=== PATIENT | male | born 1935 | race Two or more races ===

== ENCOUNTER 2017-10-23 11:25 | Day surgery (SDC) | payer MEDICARE ==
[2017-10-22 08:31] VITALS: BMI 27.5
[~2017-10-23 11:25] MED LIST: HYDROmorphone 0.5 MG/0.5 ML SYRINGE IVP PRN; LACTATED RINGERS 1,000 ML IV SCH
[2017-10-23 13:14] VITALS: RESP 16; TEMP 97.8
[2017-10-23] MEDS ORDERED: LIDOCAINE 1% 20 ML VIAL (10MG/ML) FOR IV START INTRADERMA ONE (13:19)
[2017-10-23] MEDS ORDERED: MIDAZOLAM 2 MG/2 ML VIAL ONE (14:21)
[2017-10-23] MEDS ORDERED: PROPOFOL 10 MG/ML 20 ML VIAL IV ONE (14:21)
[2017-10-23] MEDS ORDERED: fentaNYL (PF) 50 MCG/ML 2 ML AMP ONE (14:21)
--- NOTE | 2017-10-23 14:46 | P.PCN ---
Date of Procedure: 10/23/17 Procedure(s) Performed: Brief history: Patient is a pleasant 81-year-old white male, scheduled for an elective upper endoscopy as well as colonoscopy as a part of evaluation of rectal bleeding and 2 episodes of melena in the last few weeks' duration. He had a CT of the abdomen and pelvis done that showed some thickening of the colon. Patient was also diagnosed with iron deficiency anemia and has been on iron supplements lately. Procedure performed: Esophagogastroduodenoscopy with biopsy Colonoscopy with snare polypectomy Preoperative diagnosis: Anesthesia: MAC Procedure: After informed consent was obtained from the patient was brought into the endoscopy unit and IV sedation was administered by anesthesia under continuous monitoring. Initially upper endoscopy was done. The Olympus GF 160 video endoscope was inserted inserted into the mouth and esophagus intubated without any difficulty and was gradually advanced into the stomach and duodenum and carefully examined. The bulb and second part of the duodenum appeared normal. Biopsies were done from the duodenum to rule out celiac disease. The scope was then withdrawn into the stomach adequately insufflated with air and upon careful examination the antrum had minimal gastritis and biopsies were done from this area. The body, cardia and fundus appeared normal. The scope was then withdrawn into the esophagus. The GE junction was located at 40 cm to the incisors. It appeared regular with no erythema erosions or ulcerations. Rest of the esophagus appeared normal. Patient tolerated the procedure well. At this time the patient continued to remain sedation. Initial digital rectal examination was normal. Olympus CF 160 video colonoscope was then inserted into the rectum and gradually advanced to the cecum without any difficulty. Careful examination was performed as the scope was gradually being withdrawn. The prep was excellent. The cecum, appeared normal. In the ascending colon there was a 5 mm and 1 cm broad-based polyp removed by snare polypectomy. In the hepatic flexure there was a 1 cm broad-based polyp removed by snare polypectomy. Rest of the ascending colon, transverse colon, descending colon, sigmoid colon and rectum appeared normal. Retroflexion was performed in the rectum and weight 2 internal hemorrhoids were noted. Patient tolerated the procedure well. Impression: 1. Upper endoscopy revealed minimal antral gastritis but no evidence of esophagitis or peptic ulcer disease 2. Colonoscopy revealed : a)5 mm and 1 cm ascending colon polyp, snare polypectomy b)1 cm hepatic flexure polyp status post polypectomy c)Small internal hemorrhoids Recommendations: Findings of this examination were discussed with the patient as well as his family. He was advised to follow with the biopsy results. He'll be seen in office in 2 weeks.,
[2017-10-23 15:28] VITALS: BP 146/83; PULSE 75
== END 2017-10-23 15:56 | disposition home or self-care (01) ==
LOC: ORWHC2ENDO 11:25
PROVIDERS: ATTEND Internal Medicine Gastroenterology
DX: I10 Essential (primary) hypertension (principal); K29.50 Unspecified chronic gastritis without bleeding; D12.2 Benign neoplasm of ascending colon; D12.3 Benign neoplasm of transverse colon; K64.1 Second degree hemorrhoids; Z87.891 Personal history of nicotine dependence; N40.0 Benign prostatic hyperplasia without lower urinary tract symptoms; Z86.73 Personal history of transient ischemic attack (TIA), and cerebral infarction without residual deficits; Z79.899 Other long term (current) drug therapy; Z88.5 Allergy status to narcotic agent
CPT/HCPCS: 88305; 45385; 43239; J2250; J3010; J2704

== ENCOUNTER 2022-05-19 19:11 | Inpatient (IN) | payer MEDICARE ==
--- NOTE | 2022-05-19 19:42 | ED ---
Weakness HPI - General Chief complaint: Weakness Stated complaint: Weakness Time Seen by Provider: 05/19/22 19:24 Source: patient, EMS, RN notes reviewed Mode of arrival: EMS Limitations: no limitations - History of Present Illness Initial comments: 86-year-old male presents to emergency department with chief complaint of generalized weakness. Patient states that he was recently at rehab in which is getting stronger states he is not walking with any assisted devices at home but states yesterday he developed weakness that was worse today states cutting get out of his chair. Son and room states that he actually urinated which is very unusual for the patient. Patient denies any dysuria or abdominal pain currently states she's been very frequent. Patient denies any current headache, focal weakness she states she is able to move extremities. He has complained of increasing cough and cold like symptoms last 3-4 days. Denies nausea, vomiting, diarrhea constipation. Denies chest pain. - Related Data Home Medications Medication Instructions Recorded Confirmed Tamsulosin HCl [Flomax] 0.4 mg PO DAILY 10/22/17 03/03/22 amLODIPine [Norvasc] 5 mg PO DAILY 10/22/17 03/03/22 Atorvastatin [Lipitor] 10 mg PO DAILY 03/03/22 03/03/22 Finasteride [Proscar] 5 mg PO DAILY 03/03/22 03/03/22 Losartan [Cozaar] 50 mg PO DAILY 03/03/22 03/03/22 Previous Rx's Medication Instructions Recorded Acetaminophen Tab [Tylenol] 650 mg PO Q6HR PRN tab 04/01/22 Heparin Sodium,Porcine [Heparin 5,000 unit SQ Q12HR 30 Days #60 04/01/22 Sodium] each Ipratropium-Albuterol Nebulize 3 ml INHALATION RT-Q2H PRN each 04/01/22 [Duoneb 0.5 mg-3 mg/3 ml Soln] Ipratropium-Albuterol Nebulize 3 ml INHALATION RT-QID each 04/01/22 [Duoneb 0.5 mg-3 mg/3 ml Soln] Magnesium Hydroxide [Milk of 2,400 mg PO DAILY ml 04/01/22 Magnesia Concentrate] Metoclopramide [Reglan] 5 mg PO TID PRN #20 tab 04/01/22 Pantoprazole [Protonix] 40 mg PO DAILY #30 tab 04/01/22 guaiFENesin [Mucinex] 600 mg PO Q12HR tab 04/01/22 Allergies Allergy/AdvReac Type Severity Reaction Status Date / Time codeine Allergy Unknown Verified 03/03/22 20:21 Review of Systems ROS Statement: Those systems with pertinent positive or pertinent negative responses have been documented in the HPI. ROS Other: All systems not noted in ROS Statement are negative. Past Medical History Past Medical History: CVA/TIA, Hypertension, Prostate Disorder Additional Past Medical History / Comment(s): , CVA 2012, states no deficits History of Any Multi-Drug Resistant Organisms: None Reported Past Surgical History: Hernia Repair Past Anesthesia/Blood Transfusion Reactions: No Reported Reaction Past Psychological History: No Psychological Hx Reported Smoking Status: Former smoker Past Alcohol Use History: Occasional Past Drug Use History: None Reported - Past Family History Mother Family Medical History: No Reported History General Exam Limitations: no limitations General appearance: alert, in no apparent distress Head exam: Present: atraumatic, normocephalic, normal inspection Eye exam: Present: normal appearance, PERRL, EOMI. Absent: scleral icterus, conjunctival injection, periorbital swelling ENT exam: Present: normal exam, normal oropharynx, mucous membranes moist Neck exam: Present: normal inspection. Absent: tenderness, meningismus, lymphadenopathy Respiratory exam: Present: normal lung sounds bilaterally. Absent: respiratory distress, wheezes, rales, rhonchi, stridor Cardiovascular Exam: Present: normal rhythm, tachycardia, normal heart sounds. Absent: systolic murmur, diastolic murmur, rubs, gallop, clicks GI/Abdominal exam: Present: soft, normal bowel sounds. Absent: distended, tenderness, guarding, rebound, rigid Extremities exam: Present: normal inspection, full ROM, normal capillary refill. Absent: tenderness, pedal edema, joint swelling, calf tenderness Neurological exam: Present: alert, oriented X3, CN II-XII intact Skin exam: Present: warm, dry, intact, normal color. Absent: rash Course Vital Signs 05/19/22 05/19/22 05/20/22 19:17 22:50 01:00 Temperature 98.3 F 99.9 F H Pulse Rate 109 H 106 H Respiratory 18 20 Rate Blood Pressure 132/63 151/86 O2 Sat by Pulse 94 L 97 Oximetry EKG Findings - EKG Comments: EKG Findings:: EKG performed at 19:23 sinus tachycardia rate 11 MN 199 QRS 82 QT/QTC 310/368 - EKG Results: EKG: interpreted by ELLEND Medical Decision Making - Medical Decision Making Was pt. sent in by a medical professional or institution (, PA, EXAMINER RATING CLERK, urgent care, hospital, or assisted...) When possible be specific @ -No Did you speak to anyone other than the patient for history (EMS, parent, family, police, friend...)? What history was obtained from this source @ -Son in the room provide primary history EMS provided prehospital care Did you review nursing and triage notes (agree or disagree)? Why? @ -I reviewed and agree with nursing and triage notes Were old charts reviewed (outside hosp., previous admission, EMS record, old EKG, old radiological studies, urgent care reports/EKG's, assisted records)? Report findings @ -No old charts were reviewed Differential Diagnosis (chest pain, altered mental status, abdominal pain women, abdominal pain men, vaginal bleeding, weakness, fever, dyspnea, syncope, headache, dizziness, GI bleed, back pain, seizure, CVA, palpatations, mental health, musculoskeletal)? @ -nDifferential Weakness: Hypoglycemia, shock, sepsis, hyponatremia, anemia, infection, NM, ETOH, adverse medicine reaction, overdose, stroke, this is not meant to be an all-inclusive list.plicable EKG interpreted by me (3pts min.). @ -As above X-rays interpreted by me (1pt min.). @ -Chest x-ray shows no acute abnormality done CT interpreted by me (1pt min.). @ -None done U/S interpreted by me (1pt. min.). @ -None done What testing was considered but not performed or refused? (CT, X-rays, U/S, labs)? Why? @ -None What meds were considered but not given or refused? Why? @ -None Did you discuss the management of the patient with other professionals (professionals i.e. , JENIFER, EXAMINER RATING CLERK, lab, RT, psych nurse, social human services assistants, telephone sterilizer, teacher, engineering officer, bottle caser)? Give summary @ -Dr. Brothers for admission secondary to profound weakness, UTI and Covid 19 Was smoking cessation discussed for >3mins.? @ -No Was critical care preformed (if so, how long)? @ -No Were there social determinants of health that impacted care today? How? (Homelessness, low income, unemployed, alcoholism, drug addiction, transportation, low edu. Level, literacy, decrease access to med. care, senior living, rehab)? @ -No Was there de-escalation of care discussed even if they declined (Discuss DNR or withdrawal of care, Hospice)? DNR status @ -No What co-morbidities impacted this encounter? (DM, HTN, Smoking, COPD, CAD, Cancer, CVA, ARF, Chemo, Hep., AIDS, mental health diagnosis, sleep apnea, morbid obesity)? @ -None Was patient admitted / discharged? Hospital course, mention meds given and route, prescriptions, significant lab abnormalities, going to OR and other pertinent info. @ -Admitted patient is profoundly weak secondary to UTI, Covid. Patient was admitted on IV antibiotics, fluids, antipyretics. Family updated and results and plan Undiagnosed new problem with uncertain prognosis? @ -No Drug Therapy requiring intensive monitoring for toxicity (Heparin, Nitro, Insulin, Cardizem)? @ -No Were any procedures done? @ -No Diagnosis/symptom? @ -UTI, Covid Acute, or Chronic, or Acute on Chronic? @ -Acute Uncomplicated (without systemic symptoms) or Complicated (systemic symptoms)? @ -Complicated Side effects of treatment? @ -No Exacerbation, Progression, or Severe Exacerbation? @ -No Poses a threat to life or bodily function? How? (Chest pain, USA, NM, pneumonia, PE, COPD, DKA, ARF, appy, cholecystitis, CVA, Diverticulitis, Homicidal, Suicidal, threat to staff... and all critical care pts) @ -No - Lab Data Result diagrams: 05/19/22 19:23 05/19/22:23 Lab Results 05/19/22 05/19/22 05/19/22 Range/Units ::: WBC 19.0 H (3.8-10.6) k/uL RBC 3.19 L (4.30-5.90) m/uL Hgb 7.9 L (13.0-17.5) gm/dL Hct 25.5 L (39.0-53.0) % MCV 79.8 L (80.0-100.0) fL MCH 24.6 L (25.0-35.0) pg MCHC 30.8 L (31.0-37.0) g/dL RDW 22.7 H (11.5-15.5) % Plt Count 359 (150-450) k/uL MPV 7.7 Neutrophils % 88 % Lymphocytes % 4 % Monocytes % 7 % Eosinophils % 0 % Basophils % 0 % Neutrophils # 16.7 H (1.3-7.7) k/uL Lymphocytes # 0.7 L (1.0-4.8) k/uL Monocytes # 1.3 H (0-1.0) k/uL Eosinophils # 0.0 (0-0.7) k/uL Basophils # 0.0 (0-0.2) k/uL Hypochromasia Marked Poikilocytosis Slight Anisocytosis Moderate Microcytosis Moderate PT (9.0-12.0) sec INR (<1.2) APTT (22.0-30.0) sec Sodium 131 L (137-145) mmol/L Potassium 4.6 (3.5-5.1) mmol/L Chloride 102 (98-107) mmol/L Carbon Dioxide 20 L (22-30) mmol/L Anion Gap 9 mmol/L BUN 14 (9-20) mg/dL Creatinine 1.22 (0.66-1.25) mg/dL Est GFR (CKD-EPI)AfAm 62 (>60 ml/min/1.73 sqM) Est GFR (CKD-EPI)NonAf 54 (>60 ml/min/1.73 sqM) Glucose 102 H (74-99) mg/dL Plasma Lactic Acid Yonatan 1.4 (0.7-2.0) mmol/L Calcium 8.0 L (8.4-10.2) mg/dL Phosphorus 2.2 L (2.5-4.5) mg/dL Magnesium 1.7 (1.6-2.3) mg/dL Total Bilirubin 0.7 (0.2-1.3) mg/dL AST 28 (17-59) U/L ALT 18 (4-49) U/L Alkaline Phosphatase 52 (38-126) U/L Troponin I (0.000-0.034) ng/mL Total Protein 6.4 (6.3-8.2) g/dL Albumin 3.2 L (3.5-5.0) g/dL Urine Color Urine Appearance (Clear) Urine pH (5.0-8.0) Ur Specific [place] (1.001-1.035) Urine Protein (Negative) Urine Glucose (UA) (Negative) Urine Ketones (Negative) Urine Blood (Negative) Urine Nitrite (Negative) Urine Bilirubin (Negative) Urine Urobilinogen (<2.0) mg/dL Ur Leukocyte Esterase (Negative) Urine RBC (0-5) /hpf Urine WBC (0-5) /hpf Urine WBC Clumps (None) /hpf Ur Squamous Epith Cells (0-4) /hpf Urine Mucus (None) /hpf Influenza Type A (PCR) (Not Detectd) Influenza Type B (PCR) (Not Detectd) RSV (PCR) (Not Detectd) SARS-CoV-2 (PCR) (Not Detectd) 05/19/22 05/19/22 05/19/22 Range/Units 19:23 19:46 19:46 WBC (3.8-10.6) k/uL RBC (4.30-5.90) m/uL Hgb (13.0-17.5) gm/dL Hct (39.0-53.0) % MCV (80.0-100.0) fL MCH (25.0-35.0) pg MCHC (31.0-37.0) g/dL RDW (11.5-15.5) % Plt Count (150-450) k/uL MPV Neutrophils % % Lymphocytes % % Monocytes % % Eosinophils % % Basophils % % Neutrophils # (1.3-7.7) k/uL Lymphocytes # (1.0-4.8) k/uL Monocytes # (0-1.0) k/uL Eosinophils # (0-0.7) k/uL Basophils # (0-0.2) k/uL Hypochromasia Poikilocytosis Anisocytosis Microcytosis PT 12.2 H (9.0-12.0) sec INR 1.2 H (<1.2) APTT 23.7 (22.0-30.0) sec Sodium (137-145) mmol/L Potassium (3.5-5.1) mmol/L Chloride (98-107) mmol/L Carbon Dioxide (22-30) mmol/L Anion Gap mmol/L BUN (9-20) mg/dL Creatinine (0.66-1.25) mg/dL Est GFR (CKD-EPI)AfAm (>60 ml/min/1.73 sqM) Est GFR (CKD-EPI)NonAf (>60 ml/min/1.73 sqM) Glucose (74-99) mg/dL Plasma Lactic Acid Yonatan (0.7-2.0) mmol/L Calcium (8.4-10.2) mg/dL Phosphorus (2.5-4.5) mg/dL Magnesium (1.6-2.3) mg/dL Total Bilirubin (0.2-1.3) mg/dL AST (17-59) U/L ALT (4-49) U/L Alkaline Phosphatase (38-126) U/L Troponin I 0.019 (0.000-0.034) ng/mL Total Protein (6.3-8.2) g/dL Albumin (3.5-5.0) g/dL Urine Color Urine Appearance (Clear) Urine pH (5.0-8.0) Ur Specific [place] (1.001-1.035) Urine Protein (Negative) Urine Glucose (UA) (Negative) Urine Ketones (Negative) Urine Blood (Negative) Urine Nitrite (Negative) Urine Bilirubin (Negative) Urine Urobilinogen (<2.0) mg/dL Ur Leukocyte Esterase (Negative) Urine RBC (0-5) /hpf Urine WBC (0-5) /hpf Urine WBC Clumps (None) /hpf Ur Squamous Epith Cells (0-4) /hpf Urine Mucus (None) /hpf Influenza Type A (PCR) Not Detected (Not Detectd) Influenza Type B (PCR) Not Detected (Not Detectd) RSV (PCR) Not Detected (Not Detectd) SARS-CoV-2 (PCR) Detected A (Not Detectd) 05/19/22 Range/Units 21:25 WBC (3.8-10.6) k/uL RBC (4.30-5.90) m/uL Hgb (13.0-17.5) gm/dL Hct (39.0-53.0) % MCV (80.0-100.0) fL MCH (25.0-35.0) pg MCHC (31.0-37.0) g/dL RDW (11.5-15.5) % Plt Count (150-450) k/uL MPV Neutrophils % % Lymphocytes % % Monocytes % % Eosinophils % % Basophils % % Neutrophils # (1.3-7.7) k/uL Lymphocytes # (1.0-4.8) k/uL Monocytes # (0-1.0) k/uL Eosinophils # (0-0.7) k/uL Basophils # (0-0.2) k/uL Hypochromasia Poikilocytosis Anisocytosis Microcytosis PT (9.0-12.0) sec INR (<1.2) APTT (22.0-30.0) sec Sodium (137-145) mmol/L Potassium (3.5-5.1) mmol/L Chloride (98-107) mmol/L Carbon Dioxide (22-30) mmol/L Anion Gap mmol/L BUN (9-20) mg/dL Creatinine (0.66-1.25) mg/dL Est GFR (CKD-EPI)AfAm (>60 ml/min/1.73 sqM) Est GFR (CKD-EPI)NonAf (>60 ml/min/1.73 sqM) Glucose (74-99) mg/dL Plasma Lactic Acid Yonatan (0.7-2.0) mmol/L Calcium (8.4-10.2) mg/dL Phosphorus (2.5-4.5) mg/dL Magnesium (1.6-2.3) mg/dL Total Bilirubin (0.2-1.3) mg/dL AST (17-59) U/L ALT (4-49) U/L Alkaline Phosphatase (38-126) U/L Troponin I (0.000-0.034) ng/mL Total Protein (6.3-8.2) g/dL Albumin (3.5-5.0) g/dL Urine Color Yellow Urine Appearance Cloudy (Clear) Urine pH 7.0 (5.0-8.0) Ur Specific [place] 1.016 (1.001-1.035) Urine Protein 1+ H (Negative) Urine Glucose (UA) Negative (Negative) Urine Ketones Negative (Negative) Urine Blood Trace H (Negative) Urine Nitrite Positive (Negative) Urine Bilirubin Negative (Negative) Urine Urobilinogen <2.0 (<2.0) mg/dL Ur Leukocyte Esterase Large H (Negative) Urine RBC 7 H (0-5) /hpf Urine WBC >182 H (0-5) /hpf Urine WBC Clumps Occasional H (None) /hpf Ur Squamous Epith Cells <1 (0-4) /hpf Urine Mucus Rare H (None) /hpf Influenza Type A (PCR) (Not Detectd) Influenza Type B (PCR) (Not Detectd) RSV (PCR) (Not Detectd) SARS-CoV-2 (PCR) (Not Detectd) Disposition Clinical Impression: Anemia, Weakness, UTI (urinary tract infection), COVID-19 Disposition: ADMITTED IP TO THIS HOSP Condition: Fair Time of Disposition: 22:40
[2022-05-19 20:06] LABS: Anisocytosis Moderate; Basophils % (A) 0 %; Eosinophils % (A) 0 %; HCT 25.5 % (39.0-53.0); HGB 7.9 gm/dL (13.0-17.5); Hypochromasia Marked; Lymphocytes # (A) 0.7 k/uL (1.0-4.8); Lymphocytes % (A) 4 %; MCH 24.6 pg (25.0-35.0); MCHC 30.8 g/dL (31.0-37.0); MCV 79.8 fL (80.0-100.0); Mean Platelet Volume 7.7; Microcytosis Moderate; Monocytes # (A) 1.3 k/uL (0-1.0); Monocytes % (A) 7 %; Neutrophils # (A) 16.7 k/uL (1.3-7.7); Neutrophils % (A) 88 %; Platelet Count 359 k/uL (150-450); Poikilocytosis Slight; RBC 3.19 m/uL (4.30-5.90); RDW 22.7 % (11.5-15.5)
--- NOTE | 2022-05-19 20:07 | XR ---
EXAMINATION TYPE: XR chest 2V DATE OF EXAM: 05/19/2022 COMPARISON: 03/24/2022 HISTORY: Shortness of breath TECHNIQUE: Frontal and lateral views of the chest are obtained. FINDINGS: Scattered senescent parenchymal changes noted. Hyperinflation compatible with COPD. No evidence for infiltrate. No evidence for atelectasis. Heart size is stable. Mediastinal structures are stable and grossly unremarkable. No evidence for hilar prominence. Degenerative changes dorsal spine. IMPRESSION: 1. No evidence for acute pulmonary disease.
[2022-05-19 20:22] LABS: INR 1.2 (<1.2); Partial Thromboplastin Time 23.7 sec (22.0-30.0); Prothrombin Time 12.2 sec (9.0-12.0)
[2022-05-19 20:42] LABS: Albumin 3.2 g/dL (3.5-5.0); Magnesium 1.7 mg/dL (1.6-2.3); Phosphorus 2.2 mg/dL (2.5-4.5); Potassium 4.6 mmol/L (3.5-5.1); Total Bilirubin 0.7 mg/dL (0.2-1.3); Total Protein 6.4 g/dL (6.3-8.2)
[2022-05-19] MEDS ORDERED: SODIUM CHLORIDE 0.9% 500 ML 500 ML IV ONE (21:14)
[2022-05-19] MEDS ORDERED: ACETAMINOPHEN TAB 325 MG TAB PO STA (21:14)
[2022-05-19 22:14] LABS: Appearance,Urine Cloudy (Clear); Bilirubin,Urine Negative (Negative); Blood,Urine Trace (Negative); Color,Urine Yellow; Glucose,Urine (UA) Negative (Negative); Ketones,Urine Negative (Negative); Leukocyte Esterase,Urine Large (Negative); Mucus,Urine Rare /hpf; Nitrite,Urine Positive (Negative); Protein,Urine 1+ (Negative); RBC,Urine 7 /hpf (0-5); Specific Gravity,Urine 1.016 (1.001-1.035); Squamous Epithelial Cell,Urine <1 /hpf (0-4); Urobilinogen,Urine <2.0 mg/dL (<2.0); WBC,Urine >182 /hpf (0-5)
[2022-05-19] MEDS ORDERED: ONDANSETRON 4 MG/2 ML VIAL IVP PRN (23:08)
[2022-05-19] MEDS ORDERED: ACETAMINOPHEN TAB 325 MG TAB PO PRN (23:08)
[2022-05-19] MEDS ORDERED: NALOXONE 0.4 MG/ML 1 ML VIAL IV PRN (23:08)
[2022-05-19] MEDS ORDERED: IPRATROPIUM-ALBUTEROL 3 ML NEB INHALATION PRN (23:09)
[2022-05-20] MEDS ORDERED: ALBUTEROL HFA INHALER INHALATION PRN (02:47)
[2022-05-20] MEDS: amLODIPine 5 MG TAB PO SCH (10:19)
[2022-05-20] MEDS: ATORVASTATIN 10 MG TAB PO SCH (10:20)
[2022-05-20] MEDS ORDERED: LACTULOSE 20 GM/30 ML CUP PO PRN (13:41)
[2022-05-20] MEDS ORDERED: CALCIUM CARBONATE 500 MG CHEWABLE PO PRN (13:41)
[2022-05-20] MEDS ORDERED: MELATONIN 3 MG TABLET PO PRN (13:41)
[2022-05-20] MEDS ORDERED: LORazepam 0.5 MG TAB PO PRN (13:41)
[2022-05-20] MEDS ORDERED: dexAMETHasone ORAL SOLUTION 4 MG/ML VIAL PO SCH (13:45)
[2022-05-20] MEDS: CEPHALEXIN 500 MG CAP PO SCH ×3 (14:29→21:01)
[2022-05-20] MEDS: ZINC SULFATE 220 MG CAP PO SCH (14:29)
[2022-05-20] MEDS: ASCORBIC ACID 500 MG TAB PO SCH (14:29)
[2022-05-20] MEDS: ENOXAPARIN 40 MG/0.4 ML SYRINGE SQ SCH (14:29)
[2022-05-20] MEDS: dexAMETHasone 2 MG TAB PO SCH (15:03)
--- NOTE | 2022-05-20 20:50 | P.HPIM ---
History of Present Illness H&P Date: 05/20/22 Chief Complaint: Tired This is a 86-year-old patient, follows with Dr. Stark. 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 2 days ago patient started feeling tired. Some cough and cold-like symptoms for last 3-4 days.. Generalized weakness. No change in bowel pattern. Questionable uterine symptoms. Patient test for COVID positive in the ER. This morning feeling a bit better. Pulse ox of 92%. Dexamethasone started. Review of systems: GEN.: Tired EYES: None HEENT: None NECK: None RESPIRATORY: As above CARDIOVASCULAR: None GASTROINTESTINAL: None GENITOURINARY: None MUSCULOSKELETAL: None LYMPHATICS: None HEMATOLOGICAL: None PSYCHIATRY: None NEUROLOGICAL: None Past medical history to include: COVID in 2013 with resolution, hypertension, BPH, GERD, hypercholesterolemia Social history: Lives with his son. Patient smoked a pack a day from 817 stopped in 1997. Alcohol occasionally. Retired Physical examination: VITAL SIGNS: 99.9, 106, 20, 151/86, 94% on room air GENERAL: [BMI 30.4, sitting up, not in distress EYES: Pupils equal. Conjunctiva normal. HEENT: External appearance of nose and ears normal, oral cavity grossly normal. NECK: JVD not raised; masses not palpable. HEART: First and second heart sounds are normal; no edema. LUNGS: Respiratory rate normal; decreased breath sounds. ABDOMEN: Soft, nontender, liver spleen not palpable, no masses palpable. PSYCH: Alert and oriented x3; mood and affect normal. MUSCULOSKELETAL:No Clubbing/cyanosis;muscles-grossly intact. OA NEUROLOGICAL: Cranial nerves grossly intact; no facial asymmetry, power and sensation grossly intact. LYMPHATICS: No lymph nodes palpable in the axilla and neck INVESTIGATIONS, reviewed in the clinical context: White count 19 hemoglobin 7.9 platelets 359 sodium 131 potassium 4.6 creatinine 1.2 to UA positive for leukoesterase, WBC 182 COVID-19 PCR: Detected Chest x-ray film personally reviewed by me-no obvious infiltrate Assessment and plan: -COVID-19 acute infection probably for 3-4 days. Pulse ox around 94%. Dexamethasone 6 mg daily. Vitamin C. Zinc sulfate. Subcu Lovenox -Essential hypertension Amlodipine 5 mg a day, Cozaar 50 mg a day -BPH Flomax, Proscar -Hyperlipidemia Lipitor 10 mg a day -GERD Omeprazole Discussed with patient. Dexamethasone started. Increase activity. Past Medical History Past Medical History: CVA/TIA, Hypertension, Prostate Disorder Additional Past Medical History / Comment(s): , CVA 2012, states no deficits History of Any Multi-Drug Resistant Organisms: None Reported Past Surgical History: Hernia Repair Additional Past Surgical History / Comment(s): Tumor Removed Past Anesthesia/Blood Transfusion Reactions: No Reported Reaction Past Psychological History: No Psychological Hx Reported Smoking Status: Former smoker Past Alcohol Use History: Occasional Past Drug Use History: None Reported - Past Family History Mother Family Medical History: No Reported History Medications and Allergies Home Medications Medication Instructions Recorded Confirmed Type Tamsulosin HCl [Flomax] 0.4 mg PO DAILY 10/22/17 05/20/22 History amLODIPine [Norvasc] 5 mg PO DAILY 10/22/17 05/20/22 History Atorvastatin [Lipitor] 10 mg PO DAILY 03/03/22 05/20/22 History Finasteride [Proscar] 5 mg PO DAILY 03/03/22 05/20/22 History Losartan [Cozaar] 50 mg PO DAILY 03/03/22 05/20/22 History Acetaminophen Tab [Tylenol] 650 mg PO Q6HR PRN tab 04/01/22 05/20/22 Rx Omeprazole 20 mg PO DAILY 05/20/22 05/20/22 History Allergies Allergy/AdvReac Type Severity Reaction Status Date / Time codeine Allergy Unknown Verified 03/03/22 20:21 Physical Exam Vitals: Vital Signs Temp Pulse Pulse Resp BP BP Pulse Ox 05/20/22 08:43 92 L 05/20/22 08:13 96 16 133/66 95 05/20/22 08:00 98.0 F 93 18 111/65 94 L 05/20/22 06:28 97.6 F 98 20 136/71 94 L 05/20/22 02:48 99.5 F 106 H 22 151/76 94 L 05/20/22 01:00 99.9 F H 05/19/22 22:50 106 H 20 151/86 97 05/19/22 19:17 98.3 F 109 H 18 132/63 94 L Intake and Output 05/19/22 05/20/22 05/20/22 22:59 06:59 14:59 Other: Weight 98.883 kg 98.883 kg Results CBC & Chem 7: 05/19/22 19:23 05/19/22 19:23 Labs: Abnormal Lab Results - Last 24 Hours (Table) 05/19/22 05/19/22 05/19/22 Range/Units 19:23 19:23 19:46 WBC 19.0 H (3.8-10.6) k/uL RBC 3.19 L (4.30-5.90) m/uL Hgb 7.9 L (13.0-17.5) gm/dL Hct 25.5 L (39.0-53.0) % MCV 79.8 L (80.0-100.0) fL MCH 24.6 L (25.0-35.0) pg MCHC 30.8 L (31.0-37.0) g/dL RDW 22.7 H (11.5-15.5) % Neutrophils # 16.7 H (1.3-7.7) k/uL Lymphocytes # 0.7 L (1.0-4.8) k/uL Monocytes # 1.3 H (0-1.0) k/uL PT 12.2 H (9.0-12.0) sec INR 1.2 H (<1.2) Sodium 131 L (137-145) mmol/L Carbon Dioxide 20 L (22-30) mmol/L Glucose 102 H (74-99) mg/dL Calcium 8.0 L (8.4-10.2) mg/dL Phosphorus 2.2 L (2.5-4.5) mg/dL Albumin 3.2 L (3.5-5.0) g/dL Urine Protein (Negative) Urine Blood (Negative) Ur Leukocyte Esterase (Negative) Urine RBC (0-5) /hpf Urine WBC (0-5) /hpf Urine WBC Clumps (None) /hpf Urine Mucus (None) /hpf SARS-CoV-2 (PCR) (Not Detectd) 05/19/22 05/19/22 Range/Units 19:46 21:25 WBC (3.8-10.6) k/uL RBC (4.30-5.90) m/uL Hgb (13.0-17.5) gm/dL Hct (39.0-53.0) % MCV (80.0-100.0) fL MCH (25.0-35.0) pg MCHC (31.0-37.0) g/dL RDW (11.5-15.5) % Neutrophils # (1.3-7.7) k/uL Lymphocytes # (1.0-4.8) k/uL Monocytes # (0-1.0) k/uL PT (9.0-12.0) sec INR (<1.2) Sodium (137-145) mmol/L Carbon Dioxide (22-30) mmol/L Glucose (74-99) mg/dL Calcium (8.4-10.2) mg/dL Phosphorus (2.5-4.5) mg/dL Albumin (3.5-5.0) g/dL Urine Protein 1+ H (Negative) Urine Blood Trace H (Negative) Ur Leukocyte Esterase Large H (Negative) Urine RBC 7 H (0-5) /hpf Urine WBC >182 H (0-5) /hpf Urine WBC Clumps Occasional H (None) /hpf Urine Mucus Rare H (None) /hpf SARS-CoV-2 (PCR) Detected A (Not Detectd) Microbiology - Last 24 Hours (Table) 05/19/22 21:25 Urine Culture - Preliminary Urine,Voided Thrombosis Risk Factor Assmnt - Choose All That Apply Each Risk Factor Represents 3 Points: Age 75 years or older Thrombosis Risk Factor Assessment Total Risk Factor Score: 3 Thrombosis Risk Factor Assessment Level: Moderate Risk
[2022-05-21 07:14] VITALS: BP 125/69; PULSE 86; RESP 16; TEMP 98.1
[2022-05-21] MEDS: ENOXAPARIN 40 MG/0.4 ML SYRINGE SQ SCH (09:48)
[2022-05-21] MEDS: dexAMETHasone 2 MG TAB PO SCH (09:49)
[2022-05-21] MEDS: ZINC SULFATE 220 MG CAP PO SCH (09:49)
[2022-05-21] MEDS: amLODIPine 5 MG TAB PO SCH (09:49)
[2022-05-21] MEDS: CEPHALEXIN 500 MG CAP PO SCH ×2 (09:49→12:24)
[2022-05-21] MEDS: ATORVASTATIN 10 MG TAB PO SCH (09:49)
[2022-05-21] MEDS: ASCORBIC ACID 500 MG TAB PO SCH (09:49)
--- NOTE | 2022-05-22 10:10 | CDI ---
Documentation Clarification Form Date: 05/22/2022 9:58:48 AM From: Delia Sims Admit Date: 05/19/2022 11:09:00 PM Patient Name: Crow Perla Visit Number: [id number] Discharge Date: 05/21/2022 12:40:00 PM ATTENTION: The Clinical Documentation Specialists (CDI) and [facility] Coding Staff appreciate your assistance in clarifying documentation. Please respond to the clarification below the line at the bottom and electronically sign. The CDI & [facility] Coding staff will review the response and follow-up if needed. Please note: Queries are made part of the Legal Health Record. If you have any questions, please contact the author of this message via ITS. Dr. Pa Brothers UTI is documented in ED notes. "Profound weakness, UTI and Covid 19. This diagnosis is not carried into inpatient stay. Additional clarification regarding this diagnosis is requested. History/Risk Factors: Patient with Covid 19 Clinical Indicators: Vital Signs: 98.3 - 99.9 F, 109 bpm, 18, 132/60, 94% RA WBC: 19.0 Urinalysis: Cloudy urine, Large leukocyte Esterase, 1+ protein, RBC 7, WBC urine 182 Urine Culture: E coli Treatment Antibiotics Antibiotics Keflex Please clarify if patient had UTI or was it ruled out [ ] UTI [ * ] UTI ruled out [ ] Contaminated specimen [ ] Other, please specify [ ] Unable to determine Present on Admission: [ ] Yes [ ] No MTDD
--- NOTE | 2022-05-25 23:35 | P.DS ---
Providers Date of admission: 05/19/22 23:09 Expected date of discharge: 05/21/22 Attending physician: Pa Brothers Primary care physician: Jeffy Stark [facility] Course: Chief Complaint: Tired This is a 86-year-old patient, follows with Dr. Stark. Chronic stable medical conditions include stroke in 2012 with no residual, hypertension, BPH, GERD, hypercholesterolemia. 2 days ago patient started feeling tired. Some cough and cold-like symptoms for last 3-4 days.. Generalized weakness. No change in bowel pattern. Questionable uterine symptoms. Patient test for COVID positive in the ER. This morning feeling a bit better. Pulse ox of 92%. Dexamethasone started. May 21: Eating better. Breathing stable. Up in a chair. Ambulating. Keen to go home. Past medical history to include: COVID in 2012 with resolution, hypertension, BPH, GERD, hypercholesterolemia Social history: Lives with his son. Patient smoked a pack a day from 817 stopped in 1997. Alcohol occasionally. Retired Physical examination: VITAL SIGNS: 98.1, 86, 16, 125/69, 96% room air GENERAL: [BMI 30.4, sitting up, not in distress EYES: Pupils equal. Conjunctiva normal. HEENT: External appearance of nose and ears normal, oral cavity grossly normal. NECK: JVD not raised; masses not palpable. HEART: First and second heart sounds are normal; no edema. LUNGS: Respiratory rate normal; decreased breath sounds. ABDOMEN: Soft, nontender, liver spleen not palpable, no masses palpable. PSYCH: Alert and oriented x3; mood and affect normal. MUSCULOSKELETAL:No Clubbing/cyanosis;muscles-grossly intact. OA INVESTIGATIONS, reviewed in the clinical context: White count 19 hemoglobin 7.9 platelets 359 sodium 131 potassium 4.6 creatinine 1.2 to UA positive for leukoesterase, WBC 182 COVID-19 PCR: Detected Chest x-ray film personally reviewed by me-no obvious infiltrate Assessment and plan: -COVID-19 acute infection probably for 3-4 days. Pulse ox around 94%. Dexamethasone 6 mg daily. Vitamin C. Zinc sulfate. Subcu Lovenox -Essential hypertension Amlodipine 5 mg a day, Cozaar 50 mg a day -BPH Flomax, Proscar -Hyperlipidemia Lipitor 10 mg a day -GERD Omeprazole Disposition: Home Patient Condition at Discharge: Fair Plan - Discharge Summary Discharge Rx Participant: Yes New Discharge Prescriptions: New Cephalexin [Keflex] 500 mg PO QID #28 cap Ascorbic Acid [Vitamin C] 1,000 mg PO DAILY #30 tab Zinc Sulfate [Orazinc] 220 mg PO DAILY #30 cap Albuterol Inhaler [Ventolin Hfa Inhaler] 2 puff INHALATION RT-QID PRN #1 each PRN Reason: dysp Continue amLODIPine [Norvasc] 5 mg PO DAILY Tamsulosin HCl [Flomax] 0.4 mg PO DAILY Finasteride [Proscar] 5 mg PO DAILY Atorvastatin [Lipitor] 10 mg PO DAILY Acetaminophen Tab [Tylenol] 650 mg PO Q6HR PRN tab PRN Reason: Fever And/ Or Pain Omeprazole 20 mg PO DAILY Changed Losartan [Cozaar] 50 mg PO HS #0 Discharge Medication List Tamsulosin HCl [Flomax] 0.4 mg PO DAILY 10/22/17 [History] amLODIPine [Norvasc] 5 mg PO DAILY 10/22/17 [History] Atorvastatin [Lipitor] 10 mg PO DAILY 03/03/22 [History] Finasteride [Proscar] 5 mg PO DAILY 03/03/22 [History] Acetaminophen Tab [Tylenol] 650 mg PO Q6HR PRN tab 04/01/22 [Rx] Omeprazole 20 mg PO DAILY 05/20/22 [History] Albuterol Inhaler [Ventolin Hfa Inhaler] 2 puff INHALATION RT-QID PRN #1 each 05/21/22 [Rx] Ascorbic Acid [Vitamin C] 1,000 mg PO DAILY #30 tab 05/21/22 [Rx] Cephalexin [Keflex] 500 mg PO QID #28 cap 05/21/22 [Rx] Losartan [Cozaar] 50 mg PO HS #0 05/21/22 [Rx] Zinc Sulfate [Orazinc] 220 mg PO DAILY #30 cap 05/21/22 [Rx] Follow up Appointment(s)/Referral(s): Jeffy Stark DO [Primary Care Provider] - 1 Week (office will call with time) Patient Instructions/Handouts: How to Recover from COVID-19 at Home (GEN) Activity/Diet/Wound Care/Special Instructions: [facility] Discharge Disposition: HOME SELF-CARE
== END 2022-05-21 12:40 | disposition home or self-care (01) | DRG 179 ==
LOC: EC 19:11 → 4SSUR 23:09
PROVIDERS: ADMIT Hospitalist; ATTEND Hospitalist
DX: U07.1 COVID-19 (principal); E78.5 Hyperlipidemia, unspecified; E78.00 Pure hypercholesterolemia, unspecified; Z28.310 Unvaccinated for COVID-19; K21.9 Gastro-esophageal reflux disease without esophagitis; I10 Essential (primary) hypertension; Z86.73 Personal history of transient ischemic attack (TIA), and cerebral infarction without residual deficits; N40.0 Benign prostatic hyperplasia without lower urinary tract symptoms; Z79.899 Other long term (current) drug therapy; Z88.5 Allergy status to narcotic agent
CPT/HCPCS: 36415; 71046; 80053; 81001; 83605; 83735; 84100; 84484; 85025; 85610; 85730; 87040; 87077; 87086; 87186; 87636; 93005; 94760; 96361; 96365; 99285